=== PATIENT | male | born 1990 | race Caucasian/White ===

== ENCOUNTER 2017-10-30 13:42 | Emergency (ER) | payer SELFPAY ==
[2016-01-14 09:38] VITALS: BMI 26.3
[~2017-10-30 13:42] MED LIST: ACETAMINOPHEN325 MG PO; DULERA 200 MCG8.8 GM INH; HYDROCODONE-APA1 TAB PO; KLONOPIN0.5 MG PO; LEVAQUIN PREMI750 MG PO; LEVAQUIN750 MG PO; SINGULAIR10 MG PO; TESSALON PERLE100 MG PO; VENTOLIN HFA18 GM INH
== END 2017-10-30 16:27 | disposition home or self-care (01) ==
LOC: D.ER 13:42
DX: L03.112 Cellulitis of left axilla (principal); F17.200 Nicotine dependence, unspecified, uncomplicated

== ENCOUNTER 2021-03-23 16:39 | Emergency (ER) | payer BC ==
[~2021-03-23] VITALS: Ht 190.5 cm; Wt 113.6 kg
[2021-03-23 16:43] VITALS: Ht 190.5 cm; Wt 113.6 kg
[2021-03-23] MEDS ORDERED: EFFEXOR XR75 MG PO (16:45)
[2021-03-23] MEDS ORDERED: EFFEXOR XR150 MG PO (17:15)
[2021-03-23 18:01] VITALS: BP 123/72
== END 2021-03-23 18:03 | disposition home or self-care (01) ==
LOC: D.ER 16:39
DX: Z76.0 Encounter for issue of repeat prescription (principal); J45.909 Unspecified asthma, uncomplicated; Z72.0 Tobacco use